=== PATIENT | female | born 1960 ===

== ENCOUNTER → 2021-10-22 15:13 | Outpatient (POV) | payer SELFPAY | PROVIDERS: Visit Provider Dermatology | DX: Z00.00 Encounter for general adult medical examination without abnormal findings (principal) ==

== ENCOUNTER → 2023-10-29 15:02 | Outpatient (POV) | payer BC, SELFPAY ==
--- NOTE | 2023-10-29 15:23 | EXP.PAIN.OV ---
HPI Data of Consult Patient: new to practice Consult date: 10/29/23 Requesting Physician: Dominique Baugh APRN Primary Care Provider: Luis Quiroga Consult Narrative Reason for consult: Chronic neck pain, low back pain, leg pain History of present illness: Ms. Thomas is a 63 year old female who presents today as a new patient. She is a referral from [facility]. Patient was a previous [place] [facility] this office closed. Today she rates her pain a Patient states she has pain throughout multiple locations including her neck, low back and legs. Patient states this has been going on for years and progressively worsened over time. Patient does have a history of neuropathy that is most likely related to her diabetes. Patient does state her A1c earlier this year was 6.7. Patient states she has tried over the years Tylenol and ibuprofen along with heat and ice and topicals with minimal relief. Patient has had physical therapy in the past and states it worsened her pain. Patient denies any previous back surgery. She states that she did go see a neurosurgeon years ago. Patient was currently prescribed pregabalin 75 mg twice daily and oxycodone 10 mg 4 times a day. Patient states she was previously on higher amounts and then recently had a bowel issue that occurred earlier this year that resulted in her having to have a bowel resection. Patient ended up with a colostomy and that took time to heal from this. She states that she is on MiraLAX daily. Patient states that her pain is a constant throbbing sensation with occasional sharp shooting pains into her legs. She does have numbness and tingling into her lower extremities. Patient denies any recent imaging and states it may be several years ago since she had her last ones. Patient states she has had injections in the past and that these did help. She states she typically did SI and low back once. Patient does state that it has been about a year or so ago since she has had an injection. Patient is requesting we take over her current medications. Her Jarrod has been reviewed. CC: Dominique Baugh APRN [facility] Disclaimer: The information contained in this section may have been updated after the patient was seen, as this information can be updated by other users. Medical History (Updated 10/29/23 @ 15:32 by Dominique Baugh APRN) COPD (chronic obstructive pulmonary disease) DDD (degenerative disc disease), lumbar Diabetes GERD (gastroesophageal reflux disease) HLD (hyperlipidemia) HTN (hypertension) Ischemic bowel disease Surgical History (Updated 10/29/23 @ 15:15 by Xiao Moreno RN) H/O colonoscopy History of partial colectomy Family History (Updated 10/29/23 @ 15:15 by Xiao Moreno RN) Other Unknown family medical history Social History Smoking Status: Unknown if ever smoked alcohol intake: never current occupational status: other Travel in the last 8 weeks: None Review of Systems Review of Systems Review of systems:: pertinent systems reviewed and negative unless documented below Review of systems (narrative): Review of Systems: General: No recent weight changes, no fever, no sleep disturbances Respiratory: No cough, no shortness of air, no recurring pulmonary infections Cardiovascular/peripheral vascular: No chest pain, no palpitations, no edema, no shortness of breath Gastrointestinal: No new onset incontinence, normal bowel movements reported Genitourinary: No new onset incontinence Musculoskeletal: Low back pain, leg pain, chronic neck pain Psychiatric: [Normal mood/affect] Neurological: [Denies weakness in extremities], [denies balance issues] Meds Home Medications and Allergies New Prescriptions to Start Prescriptions: Allergies Allergy/AdvReac Type Severity Reaction Status Date / Time iodine Allergy Verified 10/29/23 15:47 Objective Narrative: Physical Exam: General: Alert and oriented x3, no acute dis
[2023-10-29 15:47] VITALS: BP 130/66; PULSE 108; RESP 18; O2SAT 94; BMI 34.7
== END ==
PROVIDERS: PCP Internal Medicine; Visit Provider Nurse Practitioner Family
DX: M54.50 Low back pain, unspecified (principal); G89.4 Chronic pain syndrome; M54.16 Radiculopathy, lumbar region; M54.2 Cervicalgia
CPT/HCPCS: 99202; G0463